=== PATIENT | female | born 2000 | race Caucasian/White ===

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

== ENCOUNTER 2020-12-27 10:21 | Emergency (ER) | payer SELFPAY ==
--- NOTE | 2020-12-27 11:34 | EDM.PDOC ---
ED HPI GENERAL MEDICAL PROBLEM - General Chief Complaint: General Stated Complaint: WANTS COVID TEST Time Seen by Provider: 12/27/20 11:16 Source of Information: Reports: Patient, RN Notes Reviewed History Limitations: Reports: No Limitations - History of Present Illness INITIAL COMMENTS - FREE TEXT/NARRATIVE: Patient is a 20-year-old female presents to the ER for a COVID-19 test. Patient states that she, her signifcant other and her child reside with a nephew or family member that was recently diagnosed with COVID-19. She does state that they live in a room off-site a sunroom kind of like a suite and have not been around this particular family member much in the last few days. The patient states that she has to go to work tonight, and wanted a COVID-19 screen to make sure that she was not sick. She is not experiencing any sick-like symptoms like fevers or chills, cough or shortness of breath or any sort of nausea/vomiting/diarrhea. Patient states that they plan on going to stay with someone else at this time so they can try to limit the possibility of infection. - Related Data Allergies Allergy/AdvReac Type Severity Reaction Status Date / Time fresh cut grass Allergy Airway Uncoded 12/27/20 11:02 Tightness Home Meds: Home Meds . [No Known Home Meds] 12/27/20 [History] Past Medical History [facility] History: Reports: - Past Surgical History HEENT Surgical History: Reports: Myringotomy w Tube(s) Social & Family History - Family History Family Medical History: No Pertinent Family History - Tobacco Use Tobacco Use Status *Q: Never Tobacco User Second Hand Smoke Exposure: No - Caffeine Use Caffeine Use: Reports: None - Recreational Drug Use Recreational Drug Use: No ED ROS GENERAL - Review of Systems Review Of Systems: Comprehensive ROS is negative, except as noted in HPI. ED EXAM, GENERAL - Physical Exam Exam: See Below Exam Limited By: No Limitations General Appearance: Alert, WD/WN, No Apparent Distress Respiratory/Chest: No Respiratory Distress, Lungs Clear, Normal Breath Sounds, No Accessory Muscle Use, Chest Non-Tender Cardiovascular: Normal Peripheral Pulses, Regular Rate, Rhythm, No Edema Peripheral Pulses: 2+: Radial (L), Radial (R) Extremities: Normal Inspection, Normal Capillary Refill Neurological: Alert, Oriented, Normal Cognition, No Motor/Sensory Deficits Psychiatric: Normal Affect, Normal Mood Skin Exam: Warm, Dry, Intact, Normal Color, No Rash Course - Vital Signs Last Recorded V/S: Last Vital Signs Temp 98.4 F 12/27/20 11:02 Pulse 88 12/27/20 11:02 Resp 18 12/27/20 11:02 BP 127/88 12/27/20 11:02 Pulse Ox 96 12/27/20 11:02 - Orders/Labs/Meds Labs: Laboratory Tests 12/27/20 Range/Units 10:47 SARS-CoV-2 RNA (ANDRES) Negative (NEGATIVE) - Re-Assessments/Exams Free Text/Narrative Re-Assessment/Exam: 12/27/20 11:29 Patient presents to the ER for a COVID-19 screen. This was done at the time of triage. Will await these results and come up with a definitive discharge at that time. I did tell the patient that just because the screen is negative at today's visit does not necessarily mean that she could not have been affected. That she should monitor her symptoms for the next few days, and get tested again in a few more days to make sure that it is indeed going to be negative or no exposure. She seemed to verbalize understanding. Departure - Departure Time of Disposition: 11:53 Disposition: Home, Self-Care 01 Condition: Good Clinical Impression: Exposure to COVID-19 virus - Discharge Information *PRESCRIPTION DRUG MONITORING PROGRAM REVIEWED*: No *COPY OF PRESCRIPTION DRUG MONITORING REPORT IN PATIENT JENY: No Instructions: Symptoms of COVID-19 - [facility] (04/28/2020) Referrals: PCP,None [Primary Care Provider] - Forms: ED Department Discharge Additional Instructions: You were evaluated in the ER today for exposure to someone who tested positive for COVID-19. Your COVID-19 test did come back negative, but sometimes these are false negatives. These Covid screens are only about 60% accurate; and it is common to test negative initially but then test positive a few days later. Due to this, we recommend that you try to keep yourself away from others, and get retested for COVID-19 in about 3 or 4 days. There are multiple sites that can do this, there is a drive-through clinic by the [facility], there is a walk-in clinic and our Covid clinic that can help you with these. Continue all other medications as previously prescribed. Do not hesitate to return to the ER at any time if symptoms change or worsen. Sepsis Event Note (ED) - Focused Exam Vital Signs: Vital Signs Temp Pulse Resp BP Pulse Ox 12/27/20 11:02 98.4 F 88 18 127/88 96
== END 2020-12-27 12:37 | disposition home or self-care (01) ==
LOC: JD.ED 10:21
DX: Z02.89 Encounter for other administrative examinations (principal); Z20.822 Contact with and (suspected) exposure to COVID-19; Z91.013 Allergy to seafood
CPT/HCPCS: 99282; U0002

== ENCOUNTER 2022-10-08 20:10 | Emergency (ER) | payer MEDICAID ==
[2022-10-08 20:40] LABS: APPEARANCE,URINE CLOUDY (Clear); BILIRUBIN,URINE NEGATIVE (Negative); COLOR,URINE LIGHT YELLOW (Yellow); GLUCOSE,URINE NEGATIVE (Negative); KETONES,URINE NEGATIVE (Negative); LEUKOCYTE ESTERASE,URINE TRACE (Negative); NITRITE,URINE NEGATIVE (Negative); OCCULT BLOOD,URINE 3+ (Negative); PROTEIN,URINE NEGATIVE (Negative); UROBILINOGEN,URINE 0.2 (0.2-1.0)
[2022-10-08 20:43] LABS: BASOPHILS ABSOLUTE AUTO 0.02 K/mm3 (0.01-0.08); BASOPHILS PERCENT AUTO 0.2 % (0.1-1.2); EOSINOPHILS ABSOLUTE AUTO 0.06 K/mm3 (0.04-0.36); EOSINOPHILS PERCENT AUTO 0.6 (0.7-5.8); HEMATOCRIT 40.6 % (34.1-44.9); HEMOGLOBIN 13.6 gm/dl (11.2-15.7); IMMATURE GRAN ABSOLUTE AUTO 0.02 K/mm3 (0.00-0.10); IMMATURE GRAN PERCENT AUTO 0.2 % (<=1.0); LYMPHOCYTES ABSOLUTE AUTO 3.12 K/mm3 (1.18-3.74); LYMPHOCYTES PERCENT AUTO 30.8 % (19.3-51.7); MEAN CORPUSCULAR HEMOGLOBIN 28.9 pg (25.6-32.2); MEAN CORPUSCULAR HGB CONC 33.5 g/dl (32.2-35.5); MEAN CORPUSCULAR VOLUME 86.4 fl (79.4-94.8); MEAN PLATELET VOLUME 9.7 fl (9.4-12.3); MONOCYTES ABSOLUTE AUTO 0.71 K/mm3 (0.24-0.36); NEUTROPHILS PERCENT AUTO 61.2 % (34.0-71.1); PLATELET COUNT,PLT 256 K/mm3 (182-369); WHITE BLOOD CELL COUNT,WBC 10.13 K/mm3 (3.98-10.04)
[2022-10-08 20:45] LABS: BACTERIA,URINE FEW /hpf (FEW); MUCUS,URINE NOT SEEN /hpf (FEW); RBC,URINE >100 /hpf (0-5); SQUAMOUS EPITHELIAL CELLS,UR 0-5 /hpf (0-5); WBC,URINE 0-5 /hpf (0-5)
== END 2022-10-08 21:45 | disposition home or self-care (01) ==
LOC: JD.ED 20:10
DX: O20.9 Hemorrhage in early pregnancy, unspecified (principal); Z91.09 Other allergy status, other than to drugs and biological substances; Z3A.01 Less than 8 weeks gestation of pregnancy
CPT/HCPCS: 36415; 76817; 76817-26; 81001; 84702; 85025; 86900; 86901; 99284

== ENCOUNTER 2022-10-16 07:49 | Emergency (ER) | payer SELFPAY ==
[2022-10-16 08:57] LABS: HEMATOCRIT 39.7 % (34.1-44.9); HEMOGLOBIN 13.3 gm/dl (11.2-15.7); MEAN CORPUSCULAR HGB CONC 33.5 g/dl (32.2-35.5); MEAN CORPUSCULAR VOLUME 86.5 fl (79.4-94.8); MEAN PLATELET VOLUME 10.7 fl (9.4-12.3); PLATELET COUNT,PLT 240 K/mm3 (182-369); RED BLOOD CELL COUNT 4.59 M/mm3 (3.98-5.22); WHITE BLOOD CELL COUNT,WBC 7.14 K/mm3 (3.98-10.04)
[2022-10-16 09:17] LABS: BASOPHILS ABSOLUTE AUTO 0.02 K/mm3 (0.01-0.08); BASOPHILS PERCENT AUTO 0.3 % (0.1-1.2); EOSINOPHILS ABSOLUTE AUTO 0.04 K/mm3 (0.04-0.36); EOSINOPHILS PERCENT AUTO 0.6 (0.7-5.8); IMMATURE GRAN ABSOLUTE AUTO 0.01 K/mm3 (0.00-0.10); IMMATURE GRAN PERCENT AUTO 0.1 % (<=1.0); LYMPHOCYTES ABSOLUTE AUTO 1.82 K/mm3 (1.18-3.74); LYMPHOCYTES PERCENT AUTO 25.3 % (19.3-51.7); MONOCYTES ABSOLUTE AUTO 0.57 K/mm3 (0.24-0.36); MONOCYTES PERCENT AUTO 7.9 % (4.7-12.5); NEUTROPHILS ABSOLUTE AUTO 4.74 K/mm3 (1.56-6.13); NEUTROPHILS PERCENT AUTO 65.8 % (34.0-71.1)
[2022-10-16 09:28] LABS: A/G RATIO 1.2 (1-2); ALBUMIN 3.9 g/dl (3.4-5.0); ANION GAP 12.7 (5-15); BILIRUBIN TOTAL 1.2 mg/dL (0.2-1.0); BUN/CREATININE RATIO 7.1 (14-18); CALCIUM 9.1 mg/dL (8.5-10.1); CREATININE 0.7 mg/dL (0.55-1.02); EST CRCL DRUG DOSING (CG) 113.43 mL/min; POTASSIUM,K 3.7 mEq/L (3.5-5.1); PROTEIN TOTAL,TP 7.2 g/dl (6.4-8.2)
== END 2022-10-16 11:28 | disposition home or self-care (01) ==
LOC: JD.ED 07:49
DX: O20.9 Hemorrhage in early pregnancy, unspecified (principal); Z91.048 Other nonmedicinal substance allergy status; Z3A.01 Less than 8 weeks gestation of pregnancy
CPT/HCPCS: 36415; 76817; 76817-26; 80053; 84702; 85025; 85652; 86850; 86900; 86901; 99283; 99284

== ENCOUNTER 2022-11-12 15:31 | Emergency (ER) | payer SELFPAY | END 2022-11-12 19:30 | disposition home or self-care (01) | LOC: JD.ED 15:31 | DX: L03.811 Cellulitis of head [any part, except face] (principal); Z91.048 Other nonmedicinal substance allergy status | CPT/HCPCS: 99282 ==

== ENCOUNTER 2023-05-29 09:05 | Inpatient (IN) | payer MEDICAID ==
[2023-05-29] MEDS ORDERED: Sodium Chloride 0.9% 10 ML Syringe FLUSH PRN (09:33)
[2023-05-29] MEDS ORDERED: Ondansetron 4 MG/2 ML SDV IVPUSH PRN (09:33)
[2023-05-29] MEDS ORDERED: Lidocaine 1% 50 ML MDV INJECT PRN (09:33)
[2023-05-29] MEDS ORDERED: Nalbuphine HCl 10 MG/ 1ML Amp IVPUSH PRN (09:33)
[2023-05-29] MEDS: Lactated Ringers 1,000 ML IV SCH (09:42)
[2023-05-29 09:51] LABS: BASOPHILS PERCENT AUTO 0.2 % (0.0-1.0); EOSINOPHILS PERCENT AUTO 0.2 % (0.0-6.0); HEMATOCRIT 39.9 % (37.0-47.0); HEMOGLOBIN 13.3 gm/dl (12.0-16.0); IMMATURE GRAN ABSOLUTE AUTO 0.03 K/mm3 (0.00-0.05); IMMATURE GRAN PERCENT AUTO 0.2 % (0.0-0.4); LYMPHOCYTES ABSOLUTE AUTO 1.4 K/mm3 (1.0-4.8); LYMPHOCYTES PERCENT AUTO 11.4 % (24.0-44.0); MEAN CORPUSCULAR HEMOGLOBIN 29.8 pg (28.0-32.0); MEAN CORPUSCULAR HGB CONC 33.3 g/dl (32.0-36.0); MEAN CORPUSCULAR VOLUME 89.3 fl (83.0-99.0); MEAN PLATELET VOLUME 10.4 fl (9.4-12.3); MONOCYTES ABSOLUTE AUTO 0.7 K/mm3 (0.0-0.8); MONOCYTES PERCENT AUTO 5.8 % (0.0-8.0); NEUTROPHILS ABSOLUTE AUTO 10.1 K/mm3 (1.8-7.7); NEUTROPHILS PERCENT AUTO 82.2 % (41.0-71.0); PLATELET COUNT,PLT 234 K/mm3 (150-400); RED BLOOD CELL COUNT 4.47 M/mm3 (4.10-5.30); WHITE BLOOD CELL COUNT,WBC 12.32 K/mm3 (3.9-11.3)
[2023-05-29] MEDS ORDERED: diphenhydrAMINE 50 MG/ML SDV IVPUSH PRN (10:04)
[2023-05-29] MEDS: fentaNYL 100 MCG/2 ML SDV EPIDUR PRN (10:09)
[2023-05-29] MEDS: Bupivacaine/fentaNYL/NS 100 ML Bag EPIDUR PRN (10:10)
[2023-05-29] MEDS: ePHEDrine 50 MG/ML SDV IVPUSH PRN (10:49)
[2023-05-29] MEDS: Oxytocin/Lactated Ringers 30 UNIT/500 ML BAG IV SCH (13:32)
[2023-05-29] MEDS ORDERED: Acetaminophen 325 MG Tab PO PRN (14:41)
[2023-05-29] MEDS ORDERED: Docusate Sodium 100 MG Cap PO PRN (14:41)
[2023-05-29] MEDS: Witch Hazel Medicated Pads 40/Jar TOP PRN (16:22)
[2023-05-29] MEDS: Benzocaine/Menthol 20%-0.5% Spray 78 GM Cannister TOP PRN (16:23)
[2023-05-30] MEDS: Ibuprofen 800 MG Tab PO PRN (00:09)
[2023-05-30] MEDS: Sodium Chloride 0.9% 10 ML Syringe FLUSH SCH (00:19)
== END 2023-05-30 16:30 | disposition home or self-care (01) | DRG 807 ==
LOC: JD.OBCHECK 09:05 → JD.OB 09:11 → JD.OBCHECK 09:46 → JD.OB 09:47 → OBSVTOIN 14:14 → JD.OB 14:15
PROVIDERS: ADMIT Obstetrics & Gynecology; ATTEND Obstetrics & Gynecology
PROC: 10E0XZZ Delivery of Products of Conception, External Approach (ICD-10-PCS; principal; 2023-05-29)
PROC: 10907ZC Drainage of Amniotic Fluid, Therapeutic from Products of Conception, Via Natural or Artificial Opening (ICD-10-PCS; 2023-05-29)
PROC: 3E033VJ Introduction of Other Hormone into Peripheral Vein, Percutaneous Approach (ICD-10-PCS; 2023-05-29)
PROC: 3E0R3BZ Introduction of Anesthetic Agent into Spinal Canal, Percutaneous Approach (ICD-10-PCS; 2023-05-29)
PROC: 00HU33Z Insertion of Infusion Device into Spinal Canal, Percutaneous Approach (ICD-10-PCS; 2023-05-29)
DX: O99.52 Diseases of the respiratory system complicating childbirth (principal); Z37.0 Single live birth; J45.909 Unspecified asthma, uncomplicated; O77.0 Labor and delivery complicated by meconium in amniotic fluid; Z3A.39 39 weeks gestation of pregnancy; Z88.8 Allergy status to other drugs, medicaments and biological substances
CPT/HCPCS: 36415; 51701; 59025; 59409; 85025; 86592; A9270-GY; C1758; J3010; J3490; J7120; J7999

== ENCOUNTER 2024-05-25 18:09 | Emergency (ER) | payer MEDICAID ==
[2024-05-25] MEDS ORDERED: Sodium Chloride 0.9% 10 ML Syringe FLUSH PRN ×2 (19:22→19:38)
[2024-05-25] MEDS: Iopamidol 612 MG/ML 100 ML Bottle IVPUSH ONE (19:57)
== END 2024-05-25 21:40 | disposition home or self-care (01) ==
LOC: JD.ED 18:09
DX: S00.83XA Contusion of other part of head, initial encounter (principal); S10.93XA Contusion of unspecified part of neck, initial encounter; Z91.018 Allergy to other foods; Z79.899 Other long term (current) drug therapy; Y04.8XXA Assault by other bodily force, initial encounter; Y93.89 Activity, other specified
CPT/HCPCS: 70450; 70450-26; 70486; 70486-26; 70490; 70490-26; 99284

== ENCOUNTER 2024-06-11 18:18 | Emergency (ER) | payer MEDICAID ==
[2024-06-11] MEDS: Amoxicillin/Clavulanate K 875-125 MG Tab PO ONE (18:52)
[2024-06-11] MEDS: Ketorolac 60 MG/2 ML SDV IM ONE (18:52)
== END 2024-06-11 19:12 | disposition home or self-care (01) ==
LOC: JD.ED 18:18
DX: K03.81 Cracked tooth (principal); Z91.018 Allergy to other foods; Z79.899 Other long term (current) drug therapy
CPT/HCPCS: 96372; 99282; A9270; J1885; 99284